=== PATIENT | male | born 1950 | race Caucasian/White ===

== ENCOUNTER → 2016-12-27 | Outpatient (CLI) | payer MEDICARE, OTHER ==
[~2016-12-27] MED LIST: ASPI-586 PO; BACL20TA PO; CHOL200018 PO; CLON1TAB3 PO; CLOP75TA3 PO; CYAN10007 PO; DULO30CA PO; HYDR-3811 PO; INSU100C7 SQ; LIRA0.6P SQ; METF500T4 PO; METO-272 PO; NITR0.4T7 SL; OMEG10005 PO; OMEP20TA PO; PRAM0.5T2 PO; PREG100C2 PO; RAMI5CAP PO; ROSU5TAB PO
[2016-12-27 07:46] LABS: BASOPHILS % (AUTO) 1 % (0-2); EOSINOPHILS # (AUTO) 0.3 10^3uL; EOSINOPHILS % (AUTO) 4 % (0-4); LYMPHOCYTES # (AUTO) 1.6 X10^3; MEAN CORPUSCULAR HGB CONC 34.2 g/dL (31.0-37.0); MEAN PLATELET VOLUME 9.5 FL (6.0-9.5); MONOCYTES # (AUTO) 0.6 X10^3; MONOCYTES % (AUTO) 8 % (3-11); NEUTROPHILS # (AUTO) 4.1 X10^3; NEUTROPHILS % (AUTO) 62 % (51-67); PLATELET COUNT 161 10^3uL (150-450); WHITE BLOOD COUNT 6.64 10^3uL (4.0-11.0)
[2016-12-27 07:47] LABS: MEAN CORPUSCULAR HEMOGLOBIN 36.1 PG (26.0-34.0); MEAN CORPUSCULAR VOLUME 106 FL (80-100)
[2016-12-27 07:58] LABS: ALBUMIN 4.4 g/dL (3.4-5.0); ANION GAP 11.5 MEQ/L (3-15); CALCULATED IONIZED CALCIUM 3.9 mg/dL (3.8-4.6); TOTAL PROTEIN 7.3 g/dL (6.4-8.5)
[2016-12-27 08:54] LABS: BILIRUBIN,URINE Negative (Negative); CLARITY,URINE Clear; COLOR,URINE Yellow; GLUCOSE, URINE (UA) Negative (Negative); LEUKOCYTE ESTERASE ,URINE Negative (Negative); UROBILINOGEN,URINE 0.2 mg/dL (0.2-1.0)
[2016-12-27 09:02] LABS: ERYTHROCYTE SEDIMENTATION RT* 15 mm/hr (0-19)
--- NOTE | 2016-12-27 10:42 | Diagnostic Imaging Report ---
INDICATION: Right flank pain, diabetic patient. FINDINGS: The right kidney measures 11.9 cm and the left kidney is 12.3 cm. A mid pole cyst on the right measures 4.5 cm. There are two cysts in the left kidney with the largest measuring 2.8 cm at the lower pole exophytic laterally as well as an upper pole cyst measuring 1.2 cm. The urinary bladder prevoid volume is 112 mL with a tiny 7 mL post void residual. IMPRESSION: There are bilateral renal cortical cysts. No hydronephrosis. The kidneys are otherwise normal. No pathological post void residual bladder volume. Dictated by: Dictated on workstation # [id number]
== END ==
LOC: RAD 07:26
PROVIDERS: ATTEND Family Medicine
DX: M54.5 Low back pain (principal); E10.9 Type 1 diabetes mellitus without complications; N28.1 Cyst of kidney, acquired
CPT/HCPCS: 36415; 76770; 80053; 80061; 81003; 82550; 83036; 84100; 84550; 85025; 85652

== ENCOUNTER → 2017-01-04 | Outpatient (CLI) | payer MEDICARE, OTHER ==
--- NOTE | 2017-01-04 09:07 | Diagnostic Imaging Report ---
INDICATION: Renal cyst. TECHNIQUE: The CT of the abdomen and pelvis was obtained with pre and post IV contrast studies of the abdomen and a post IV contrast study of the pelvis. COMPARISON: Correlation is made with an ultrasound of 12/27/2016. There is no prior CT for comparison. FINDINGS: The visualized portions of the lung bases are clear. There are no pleural fluid collections. There is no free intraperitoneal air. The liver shows no focal lesion. The patient is status post cholecystectomy. The spleen, adrenals, and pancreas are normal in appearance. The kidneys bilaterally show no hydronephrosis. There is a cyst in the right kidney anteriorly measuring about 3.8 cm. There is a cyst in the right kidney inferiorly measuring less than 1 cm. There is a cyst in the left kidney inferiorly measuring about 2.5 cm. There are a couple of tiny cysts elsewhere in the left kidney. There is no retroperitoneal mass or adenopathy. There is no ascites or abnormal fluid collection. There is a small periumbilical hernia containing fat. There is no pelvic mass or free fluid. There is mild bladder wall thickening which may be secondary to underdistention. IMPRESSION: Bilateral simple cysts in both kidneys. No solid mass or hydronephrosis. Status post cholecystectomy. Small periumbilical hernia containing fat. No acute abnormality is seen. Dictated by: Dictated on workstation # [id number]
== END ==
LOC: RAD 06:51
PROVIDERS: ATTEND Family Medicine
DX: N28.1 Cyst of kidney, acquired (principal)
CPT/HCPCS: 74178; Q9967